=== PATIENT | female | born 1965 | race Two or more races ===

== ENCOUNTER 2018-06-23 10:43 | Outpatient (CLI) | payer OTHER | END 2018-06-23 10:53 | disposition home or self-care (01) | LOC: SONOGRAMA 10:43 | DX: N84.0 Polyp of corpus uteri (principal) ==

== ENCOUNTER → 2018-09-01 | Day surgery (SDC) | payer OTHER ==
[~2018-09-01] MED LIST: KETO10TA2 PO; MULTI VITAMIN1 EACH PO; PROBIOTIC1 EAC4 PO; VIT C-ROSE HIP500 MG PO; [UNRECOGNIZED DRUG - OTHER] PO
== END | disposition home or self-care (01) ==
LOC: ADM 08-26 09:30 → CIR.AMB 05:16
DX: N84.0 Polyp of corpus uteri (principal)